=== PATIENT | male | born 1955 | race Caucasian/White ===

== ENCOUNTER 2018-08-15 01:08 | Observation (INO) ==
[2018-08-15] MEDS ORDERED: Morphine Sulfate Inj 2 MG/ML Vial IV.PUSH ONE (01:53)
--- NOTE | 2018-08-15 01:53 | ED ---
HPI General Chief Complaint: Respiratory Symptoms Stated Complaint: Respiratory Time Seen by Provider: 08/15/18 01:26 Source: patient Mode of arrival: ambulatory Limitations: no limitations History of Present Illness 62 yo M c/o shortness of breath at rest and with exertion for the past few days. it has been gradually worsening. 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 He has been switching antihypertensives including stopping and hctz and starting metoprolol. no fever. non-productive coughing reported. pressure like chest discomfort reported in substernal distribution. urination has been normal. pt denies hx chf. pt follows with dr gilman of cardiology for [facility]. MD Complaint: Reports shortness of breath Related Data Home Medications Medication Instructions Recorded Confirmed gabapentin 300 mg PO QID 08/15/18 08/15/18 lisinopril 5 mg PO DAILY 08/15/18 08/15/18 metoprolol succinate 25 mg PO BID 08/15/18 08/15/18 pantoprazole 20 mg PO DAILY 08/15/18 08/15/18 Allergies Allergy/AdvReac Type Severity Reaction Status Date / Time ropinirole Allergy Mild Vertigo Verified 08/15/18 01:12 metronidazole [From Flagyl] Allergy Vomiting Verified 08/15/18 01:12 Review of Systems ROS: all other systems reviewed are negative [facility] Medical History Medical History Lymph nodes enlarged (Acute) Patient denies medical problems (Acute) Surgical History Surgical History H/O lithotripsy (Acute) History of colon resection (Acute) Social History Social History Substance History: No History of Abuse Second Hand Smoke Exposure: No Smoking Status: Current every day smoker Tobacco Type: Cigarettes How Often Do You Have a Drink Containing Alcohol: Never Recent [facility] within the Last 8 Weeks: No Recent Out of Country Travel within the Last 8 Weeks: No Immunization History Tetanus Immunization: <5 Years Tetanus Immunization Year if Known: 2013 Exam Narrative Exam Narrative: GENERAL: 62 yo M wnwd no acute distress speaking in setnences SKIN: Focused skin assessment warm/dry. HEAD: Atraumatic. Normocephalic. EYES: Pupils equal and round. No scleral icterus. No injection or drainage. ENT: No nasal bleeding or discharge. Mucous membranes pink and moist. NECK: Trachea midline. No JVD. CARDIOVASCULAR: Regular rate and rhythm. No murmur appreciated. RESPIRATORY: No accessory muscle use. Clear to auscultation. Breath sounds equal bilaterally. GASTROINTESTINAL: Abdomen soft, non-tender, nondistended. Hepatic and splenic margins not palpable. MUSCULOSKELETAL: No obvious deformities. No clubbing. No cyanosis. No edema. NEUROLOGICAL: Awake and alert. No obvious cranial nerve deficits. Motor grossly within normal limits. Normal speech. PSYCHIATRIC: Appropriate mood and affect; insight and judgment normal. Course Initial Documented Vital Signs Temperature 97.6 F 08/15/18 01:15 Pulse Rate 60 08/15/18 01:15 Respiratory Rate 22 08/15/18 01:15 Blood Pressure 160/70 H 08/15/18 01:15 Pulse Oximetry 97 08/15/18 01:15 Last Documented Vital Signs Temperature 97.6 F 08/15/18 01:15 Pulse Rate 60 08/15/18 03:43 Respiratory Rate 20 08/15/18 03:43 Blood Pressure 127/61 08/15/18 03:43 Pulse Oximetry 98 08/15/18 03:43 Medical Decision Making [facility] Narrative Medical decision making narrative: cbc normal cmp essneitally normal bnp 563 tn < 0.02 EKG sinus rate 70, pvcs present, no twi or st elevations cxr shows no dense consolidation 40mg iv lasix given d/w [facility] Mart[facility]nez [facility], admission to Dr Lopez Medical Screen Exam Complete: Yes Emergency Medical Condition: Yes Lab Data Result diagrams: 08/15/18 01:56 08/15/18 01:56 Lab Results 08/15/18 08/15/18 08/15/18 Range/Units 01:56 01:56 01:56 WBC 7.7 (4.0-11.0) th/mm3 RBC 4.37 L (4.50-5.90) mil/mm3 Hgb 13.3 (13.0-17.0) gm/dL Hct 39.2 (39.0-51.0) % MCV 89.7 (80.0-100.0) fL MCH 30.5 (27.0-34.0) pg MCHC 34.0 (32.0-36.0) % RDW 16.0 (11.6-17.2) % Plt Count 195 (150-450) th/mm3 MPV 8.2 (7.0-11.0) fL Neut % (Auto) 72.9 H (16.0-70.0) % Lymph % (Auto) 18.0 (9.0-44.0) % Citrus % (Auto) 6.2 (0.0-8.0) % Eos % (Auto) 2.0 (0.0-4.0) % Baso % (Auto) 0.9 (0.0-2.0) % Neut # (Auto) 5.6 (1.8-7.7) th/mm3 Lymph # (Auto) 1.4 (1.0-4.8) th/mm3 Citrus # (Auto) 0.5 (0.0-0.9) th/mm3 Eos # (Auto) 0.2 (0.0-0.4) th/mm3 Baso # (Auto) 0.1 (0.0-0.2) th/mm3 WBC Differential . Differential Comment Auto diff final PT 10.7 (9.8-11.6) sec INR 1.1 Ratio APTT 26.8 (23.4-31.7) sec Sodium 145 (136-145) meq/L Potassium 4.6 (3.5-5.1) meq/L Chloride 114 H (98-107) meq/L Carbon Dioxide 26.5 (21.0-32.0) meq/L Anion Gap 5 (5-15) meq/L BUN 16 (7-18) mg/dL Creatinine 1.01 (0.60-1.30) mg/dL Estimated GFR 75 L (>89) mL/min Random Glucose 116 H (74-106) mg/dL Calcium 8.7 (8.5-10.1) mg/dL Magnesium 1.9 (1.5-2.5) mg/dL Total Bilirubin 0.2 (0.2-1.0) mg/dL AST 19 (15-37) U/L ALT 28 (12-78) U/L Alkaline Phosphatase 83 (45-117) U/L Troponin I Less than 0.02 L (0.02-0.05) ng/mL B-Natriuretic Peptide (0-100) pg/mL Total Protein 6.9 (6.4-8.2) g/dL Albumin 3.3 L (3.4-5.0) g/dL 08/15/18 Range/Units 01:56 WBC (4.0-11.0) th/mm3 RBC (4.50-5.90) mil/mm3 Hgb (13.0-17.0) gm/dL Hct (39.0-51.0) % MCV (80.0-100.0) fL MCH (27.0-34.0) pg MCHC (32.0-36.0) % RDW (11.6-17.2) % Plt Count (150-450) th/mm3 MPV (7.0-11.0) fL Neut % (Auto) (16.0-70.0) % Lymph % (Auto) (9.0-44.0) % Citrus % (Auto) (0.0-8.0) % Eos % (Auto) (0.0-4.0) % Baso % (Auto) (0.0-2.0) % Neut # (Auto) (1.8-7.7) th/mm3 Lymph # (Auto) (1.0-4.8) th/mm3 Citrus # (Auto) (0.0-0.9) th/mm3 Eos # (Auto) (0.0-0.4) th/mm3 Baso # (Auto) (0.0-0.2) th/mm3 WBC Differential Differential Comment PT (9.8-11.6) sec INR Ratio APTT (23.4-31.7) sec Sodium (136-145) meq/L Potassium (3.5-5.1) meq/L Chloride (98-107) meq/L Carbon Dioxide (21.0-32.0) meq/L Anion Gap (5-15) meq/L BUN (7-18) mg/dL Creatinine (0.60-1.30) mg/dL Estimated GFR (>89) mL/min Random Glucose (74-106) mg/dL Calcium (8.5-10.1) mg/dL Magnesium (1.5-2.5) mg/dL Total Bilirubin (0.2-1.0) mg/dL AST (15-37) U/L ALT (12-78) U/L Alkaline Phosphatase (45-117) U/L Troponin I (0.02-0.05) ng/mL B-Natriuretic Peptide 563 H (0-100) pg/mL Total Protein (6.4-8.2) g/dL Albumin (3.4-5.0) g/dL Imaging Data Radiologist's impression: Chest X-Ray 08/15/18 01:50 CONCLUSION: Minimal basilar atelectasis. No focal consolidation or effusion. Discharge Plan Discharge Disposition Patient Disposition: ED Admit(ED Internal Use Only) Discharge Order Discharge Orders: ED Use Only Admit Order (Routine); Ordered 08/15/18 Ordered By: Feroz Garrett Physicians Team ED Provider: Feroz Garrett Attending Provider: Marquis Lopez Status ED Status: Admitted Observation Patient
[2018-08-15 02:07] LABS: Baso # (Auto) 0.1 th/mm3 (0.0-0.2); Baso % (Auto) 0.9 % (0.0-2.0); Eos # (Auto) 0.2 th/mm3 (0.0-0.4); Hematocrit 39.2 % (39.0-51.0); Hemoglobin 13.3 gm/dL (13.0-17.0); Lymph # (Auto) 1.4 th/mm3 (1.0-4.8); Mean Corpuscular Hemoglobin 30.5 pg (27.0-34.0); Mean Corpuscular Volume 89.7 fL (80.0-100.0); Mean Platelet Volume 8.2 fL (7.0-11.0); Mono # (Auto) 0.5 th/mm3 (0.0-0.9); Mono % (Auto) 6.2 % (0.0-8.0); Neut # (Auto) 5.6 th/mm3 (1.8-7.7); Neut % (Auto) 72.9 % (16.0-70.0); Platelet Count 195 th/mm3 (150-450); Red Blood Count 4.37 mil/mm3 (4.50-5.90); White Blood Count 7.7 th/mm3 (4.0-11.0)
[2018-08-15 02:14] LABS: Activated Partial Thrombo Time 26.8 sec (23.4-31.7); INR 1.1 Ratio; Prothrombin Time 10.7 sec (9.8-11.6)
[2018-08-15 02:22] LABS: Alanine Aminotransferase 28 U/L (12-78); Albumin 3.3 g/dL (3.4-5.0); Anion Gap 5 meq/L (5-15); Aspartate Aminotransferase 19 U/L (15-37); Blood Urea Nitrogen 16 mg/dL (7-18); Calcium 8.7 mg/dL (8.5-10.1); Carbon Dioxide 26.5 meq/L (21.0-32.0); Chloride 114 meq/L (98-107); Glomerular Filtration Rate 75 mL/min (>89); Glucose,Random 116 mg/dL (74-106); Magnesium 1.9 mg/dL (1.5-2.5); Potassium 4.6 meq/L (3.5-5.1); Sodium 145 meq/L (136-145)
[2018-08-15 02:26] LABS: Alkaline Phosphatase 83 U/L (45-117); Total Protein 6.9 g/dL (6.4-8.2)
--- NOTE | 2018-08-15 02:47 | XR ---
EXAM DATE: 08/15/2018 2:14 AM EST AGE/SEX: 62 years / Male INDICATIONS: Short of breath. CLINICAL DATA: This is the patient's initial encounter. Patient reports that signs and symptoms have been present for 1 day and indicates a pain score of 0/10. MEDICAL/SURGICAL HISTORY: None. None. COMPARISON: No prior exams available for comparison. FINDINGS: A single AP view of the chest demonstrates the lungs to be symmetrically aerated without evidence of mass, infiltrate or effusion. Minimal basilar atelectasis. The cardiomediastinal contours are unremar kable. Osseous structures are intact. CONCLUSION: Minimal basilar atelectasis. No focal consolidation or effusion. Electronically signed by: Wil Cortés MD Board Certified Radiologist 08/15/2018 2:46 AM EST
--- NOTE | 2018-08-15 08:45 | P.HPIM ---
Addendum entered and electronically signed by NICOLASA Mcghee 16:48: Echocardiogram 08/15/18: Normal left ventricular size. Wall thickness is measured at the upper limits of normal. The left ventricular systolic function is normal with an estimated ejection fraction in the range of 55-60%. Trace mitral valve regurgitation. Mitral annular calcification is present. There is trace tricuspid valve regurgitation. The estimated pulmonary arterial pressure is 48 mmHg. Patient with likely Diastolic CHF Patient to be DC home in stable condition on a heart healthy diet with no activity restrictions Patient to take lasix 20 mg daily with potassium 10 meq daily in addition to his home regular home medication regiment. repeat BMP in 5 days results to PCP and Dr. Goodman Patient to follow up with PCP and Dr. Goodman in 1 week Original Note: History of Present Illness Primary Care Physician: Giancarlo Becerra Chief Complaint: Shortness of breath History of Present Illness: Mr Arzola is a 62 year old male with a past medical history which includes atrial tachycardia, cardiomegaly, hypertension, COPD, DM- diet controlled, ED, GERD and hyperlipidemia. Patient presents tot he ER with c/o shortness of breath at rest and with exertion for the past few month, but much worse over the last few days. The shortness of breath has been gradually worsening. Patient also reports nonproductive cough and pressure-like chest discomfort in the substernal distribution described as only being able to take, "half breaths." Patient denies weight gain. Patient has noticed 1+ pitting edema. 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 Patient's cardiology recently stopped HCTZ and started metoprolol, due to concerns for atrial tachycardia. Patient follows with Dr. Goodman cardiology for [facility]. Patient denies fevers chills nausea vomiting diarrhea constipation or changes in urination. Patient's shortness of breath, cough and chest pressure resolved after Lasix given in ER last night. PMH: atrial tachycardia, cardiomegaly, hypertension, COPD, DM- diet controlled, ED, GERD and hyperlipidemia PSxH: Appendectomy, bronchoscopy, colonoscopy, EGD, laparoscopic partial colectomy due to diverticulitis, renal lithotripsy, umbilical hernia repair Family medical history: Reviewed and noncontributory Social history: Patient smokes 1 PPD since he was a teenager denies EOTH use denies illicit drug use Medications and Allergies Allergies Allergy/AdvReac Type Severity Reaction Status Date / Time ropinirole Allergy Mild Vertigo Verified 08/15/18 01:12 metronidazole [From Flagyl] Allergy Vomiting Verified 08/15/18 01:12 Home Medications Medication Instructions Recorded Confirmed Type gabapentin See Label Instructions .ROUTE 08/15/18 08/15/18 History .COMPLEX lisinopril 5 mg PO DAILY 08/15/18 08/15/18 History metoprolol succinate 25 mg PO BID 08/15/18 08/15/18 History pantoprazole 20 mg PO DAILY 08/15/18 08/15/18 History Physical Exam Vital signs: Last Vital Signs Temp 97.6 F 08/15/18 01:15 Pulse 55 L 08/15/18 08:37 Resp 16 08/15/18 08:37 BP 142/65 H 08/15/18 06:37 Pulse Ox 95 08/15/18 08:37 Narrative: GENERAL: This is a well-nourished, well-developed patient, in no apparent distress. CARDIOVASCULAR: Regular rate and rhythm RESPIRATORY: bibasilar crackles GASTROINTESTINAL: Abdomen soft, non-tender, nondistended. Normal active bowel sounds MUSCULOSKELETAL: Extremities without clubbing, cyanosis NEURO: Alert & Oriented x4 to person, place, time, situation. Moves all ext x4 Results Labs CBC & Chem 7: 08/15/18 01:56 08/15/18 01:56 Caprini VTE Risk Assessment Caprini VTE Risk Assessment: No/Low Risk (score <= 1) Caprini Risk Assessment Model: Point Value = 1 Point Value = 2 Point Value = 3 Point Value = 5 Age 41-60 Minor surgery BMI > 25 kg/m2 Swollen legs Varicose veins or History of unexplained or recurrent spontaneous Oral contraceptives or hormone replacement Sepsis (< 1 month) Serious lung disease, including pneumonia (< 1 month) Abnormal pulmonary function Acute myocardial infarction Congestive heart failure (< 1 month) History of inflammatory bowel disease Medical patient at bed rest Age 61-74 Arthroscopic surgery Major open surgery (> 45 min) Laparoscopic surgery (> 45 min) Malignancy Confined to bed (> 72 hours) Immobilizing plaster cast Central venous access Age >= 75 History of VTE Family history of VTE Factor V Leiden Prothrombin [id number] Lupus anticoagulant Anticardiolipin antibodies Elevated serum homocysteine Heparin-induced thrombocytopenia Other congenital or acquired thrombophilia Stroke (< 1 month) Elective arthroplasty Hip, pelvis, or leg fracture Acute spinal cord injury (< 1 month) Prophylaxis Regimen: Total Risk Factor Score Risk Level Prophylaxis Regimen 0-1 Low Early ambulation 2 Moderate Order ONE of the following: *Sequential Compression Device (SCD) *Heparin 5000 units SQ BID 3-4 Higher Order ONE of the following medications: *Heparin 5000 units SQ TID *Enoxaparin/Lovenox 40 mg SQ daily (WT < 150 kg, CrCl > 30 mL/min) *Enoxaparin/Lovenox 30 mg SQ daily (WT < 150 kg, CrCl > 10-29 mL/min) *Enoxaparin/Lovenox 30 mg SQ BID (WT < 150 kg, CrCl > 30 mL/min) AND/OR *Sequential Compression Device (SCD) 5 or more Highest Order ONE of the following medications: *Heparin 5000 units SQ TID (Preferred with Epidurals) *Enoxaparin/Lovenox 40 mg SQ daily (WT < 150 kg, CrCl > 30 mL/min) *Enoxaparin/Lovenox 30 mg SQ daily (WT < 150 kg, CrCl > 10-29 mL/min) *Enoxaparin/Lovenox 30 mg SQ BID (WT < 150 kg, CrCl > 30 mL/min) AND *Sequential Compression Device (SCD) Assessment and Plan Plan Mr Arzola is a 62 year old male with a past medical history which includes atrial tachycardia, cardiomegaly, hypertension, COPD, DM- diet controlled, ED, GERD and hyperlipidemia. Patient presents tot he ER with c/o shortness of breath at rest and with exertion for the past few days. The shortness of breath has been gradually worsening. Patient also reports nonproductive cough. And pressure-like chest discomfort in the substernal distribution. 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 He has been switching antihypertensives including stopping and hctz and starting metoprolol, Due to concerns for atrial tachycardia. Patient follows with Dr. Goodman cardiology for [facility]. Patient denies fevers chills nausea vomiting diarrhea constipation or changes in urination. SOB New onset CHF (Unknown type echocardiogram pending) Chest X-Ray 08/15/18 Minimal basilar atelectasis. No focal consolidation or effusion. BNP 563 Echocardiogram pending Continuous cardiac telemetry Patient given 40 mg IV Lasix in emergency department We will continue Lasix 40 mg IV daily with potassium Check BMP, TSH, repeat BNP in AM Atrial tachycardia Continue home metoprolol 25 mg twice daily Hypertension Continue patient's home lisinopril in addition to metoprolol 25 mg twice daily Monitor blood pressure DM- diet controlled Diabetic diet with salt restriction GERD Continue patient's home pantoprazole Hyperlipidemia Patient unable to take statins due to myalgia Low-fat low-cholesterol diet Restless leg syndrome Continue home Gabapentin DVT prophylaxis with SCDs Attending Attestation The exam, history, and the medical decision-making described in the above note were completed with the assistance of the mid-level provider. I reviewed and agree with the findings presented. I attest that I had a [id number] encounter with the patient on the same day, and personally performed and documented my assessment and findings in the medical record. Patient examined. Assessment and plan formulated with Maryjo Miles PA-C. I agree with the above.
[2018-08-15] MEDS ORDERED: Pantoprazole Sodium 20 MG DR Tablet PO SCH (09:15)
[2018-08-15] MEDS ORDERED: Lisinopril 5 MG Tablet PO SCH (09:15)
[2018-08-15] MEDS ORDERED: Gabapentin 300 MG Capsule PO SCH (13:15)
[2018-08-15] MEDS ORDERED: Acetaminophen 500 MG Tablet PO PRN (15:34)
[2018-08-15] MEDS ORDERED: Sodium Chloride 0.9% 2 ML Flush PRN IV.FLUSH (15:54)
--- NOTE | 2018-08-15 16:08 | ECHRPT ---
Indication: Heart Failure CONCLUSIONS Normal left ventricular size. Wall thickness is measured at the upper limits of normal. The left ventricular systolic function is normal with an estimated ejection fraction in the range of 55-60%. Trace mitral valve regurgitation. Mitral annular calcification is present. There is trace tricuspid valve regurgitation. The estimated pulmonary arterial pressure is 48 mmHg. BP: / HR: Rhythm: MEASUREMENTS (Male / Female) Normal Values Technical Quality:Fair 2D ECHO LV Diastolic Diameter PLAX 4.8 cm 4.2 - 5.9 / 3.9 - 5.3 cm LV Systolic Diameter PLAX 3.6 cm IVS Diastolic Thickness 1.0 cm 0.6 - 1.0 / 0.6 - 0.9 cm LVPW Diastolic Thickness 1.0 cm 0.6 - 1.0 / 0.6 - 0.9 cm LV Relative Wall Thickness 0.4 RV Internal Dim ED PLAX 2.9 cm LVOT Diameter 2.1 cm Aortic Root Diameter 3.1 cm LA Systolic Diameter LX 3.4 cm 3.0 - 4.0 / 2.7 - 3.8 cm DOPPLER Mitral E Point Velocity 84.4 cm/s Mitral A Point Velocity 92.3 cm/s Mitral E to A Ratio 0.9 LV E' Lateral Velocity 12.1 cm/s Mitral E to LV E' Lateral Ratio 7.0 LV E' Septal Velocity 8.7 cm/s Mitral E to LV E' Septal Ratio 9.7 TR Peak Velocity 307.0 cm/s TR Peak Gradient 37.7 mmHg Right Atrial Pressure 10.0 mmHg Pulmonary Artery Systolic Pressu 47.7 mmHg Right Ventricular Systolic Press 47.7 mmHg PV Peak Velocity 96.4 cm/s PV Peak Gradient 3.7 mmHg FINDINGS LEFT VENTRICLE Normal left ventricular size. Wall thickness is measured at the upper limits of normal. The left ventricular systolic function is normal with an estimated ejection fraction in the range of 55-60%. RIGHT VENTRICLE Normal right ventricular size and systolic function. LEFT ATRIUM The left atrial size is normal. RIGHT ATRIUM The right atrial size is normal. ATRIAL SEPTUM Normal atrial septal thickness without atrial level shunting by limited color doppler interrogation. AORTA The aortic root and proximal ascending aorta are normal in size on limited imaging. MITRAL VALVE Trace mitral valve regurgitation. Mitral annular calcification is present. AORTIC VALVE Trileaflet aortic valve. No aortic valve stenosis or regurgitation. TRICUSPID VALVE There is trace tricuspid valve regurgitation. The estimated pulmonary arterial pressure is 48 mmHg. PULMONARY VALVE No pulmonary valve regurgitation or stenosis. VESSELS The inferior vena cava is normal in size. PERICARDIUM No pericardial effusion. Jose L Allen MD, FACC, [facility] [place] (Electronically Signed) Final Date:15 August 2018 16:08
[2018-08-15 16:55] VITALS: BP 119/76; PULSE 53; RESP 14; TEMP 98.9; O2SAT 95
--- NOTE | 2018-08-15 17:28 | ECG ---
Date Performed: 08/15/2018 Time Performed: 01:27:53 PTAGE: 62 years EKG: Sinus rhythm WITH OCCASIONAL VENTRICULAR PREMATURE COMPLEXES BORDERLINE ECG PREVIOUS TRACING : 08/17/2013 20.38 Since the previous tracing, no significant change noted DOCTOR: Jose L Allen Interpretating Date/Time 08/15/2018 17:27:50
[2018-08-15] MEDS ORDERED: Sodium Chloride 0.9% 2 ML Flush BID IV.FLUSH SCH (21:00)
== END 2018-08-15 18:19 | disposition home or self-care (01) ==
LOC: NEPE 01:08 → NEDA 01:08 → NEDH 05:39 → NEDA 08:02 → NEPFCDU 11:12
PROVIDERS: ADMIT Hospitalist; ATTEND Hospitalist
DX: Z90.49 Acquired absence of other specified parts of digestive tract; E78.5 Hyperlipidemia, unspecified; Z79.899 Other long term (current) drug therapy; I11.9 Hypertensive heart disease without heart failure; E11.9 Type 2 diabetes mellitus without complications; K21.9 Gastro-esophageal reflux disease without esophagitis; I50.30 Unspecified diastolic (congestive) heart failure; J44.9 Chronic obstructive pulmonary disease, unspecified; F17.210 Nicotine dependence, cigarettes, uncomplicated; G25.81 Restless legs syndrome; I47.1 Supraventricular tachycardia
CPT/HCPCS: 71010; 71045; 80053; 83520; 83735; 83880; 84484; 85025; 85610; 85730; 87275; 87276; 87804; 90774; 90775; 90784; 93005; 93306; 94664; 96374; 96375; 96376; 99285; C8952; G0378; J1940; J2270